=== PATIENT | male | born 1970 | race Two or more races ===

== ENCOUNTER 2024-03-16 07:24 | Observation (INO) | payer OTHER ==
[2024-03-16 11:35] LABS: INR 1.08 (0.83-1.09); PROTHROMBIN TIME (PATIENT) 11.8 SEC (9.7-13.0)
[2024-03-16 11:37] LABS: ACTIVATED PTT 34.1 SECONDS (25.2-36.5)
[2024-03-16 11:44] LABS: BASO % 0.4 % (0-2.0); EOS % 0.4 % (0-4.5); HEMOGLOBIN 13.2 GM/dL (11.7-16.9); LYMPH % 22.4 % (8-40); MCH 29.7 pg (25.7-33.7); MCHC 35.8 g/dl (32.0-35.9); MEAN PLT VOLUME 6.8 fl (7.5-11.1); MONO % 4.3 % (3.8-10.2); NEUT % 72.5 % (42.8-82.8); PLATELET COUNT 337 10^3/uL (134-434); RBC 4.46 M/mm3 (4.00-5.60); RDW 13.2 % (11.9-15.9); WHITE BLOOD COUNT 9.8 K/mm3 (4.0-10.0)
[2024-03-16 11:50] LABS: CHLORIDE 105 mmol/L (98-107); POTASSIUM 4.1 mmol/L (3.5-5.1); SODIUM 135 mmol/L (136-145)
[2024-03-16 11:53] LABS: ALBUMIN 3.8 g/dl (3.4-5.0); ANION GAP 5 mmol/L (4-13); BLOOD UREA NITROGEN 20.7 mg/dL (7-18); CO2 25 mmol/L (21-32); GLUCOSE,RANDOM 120 mg/dL (74-106)
[2024-03-16 11:56] LABS: CREATININE 0.9 mg/dL (0.55-1.3); SGOT/AST 11 U/L (15-37); SGPT/ALT 19 U/L (13-61)
[2024-03-16 11:57] LABS: BILIRUBIN,TOTAL 0.7 mg/dL (0.2-1); TOT PROT 7.7 g/dl (6.4-8.2)
[2024-03-16 11:58] LABS: ALK PHOS 122 U/L (45-117)
[2024-03-16 13:03] LABS: ERYTHROCYTE SEDIMENTATION RATE 37 mm/hr (0-20)
[2024-03-16 13:22] LABS: HIV INTERPRETATION NEGATIVE (NEGATIVE)
[2024-03-16 15:17] VITALS: BMI 33.0
[2024-03-16] MEDS: INSULIN ASPART SLIDING SCALE (NOVOLOG) 1 VIAL SQ SCH (17:19)
[2024-03-16] MEDS ORDERED: ALBUTEROL SO4 HFA INHALER IH PRN (21:51)
[2024-03-16] MEDS: ATORVASTATIN CA 20 MG TABLET (FP) PO SCH (22:00)
[2024-03-17] MEDS: BUPIVACAINE HCL/PF 0.5% (5MG/ML) 10 ML VIAL IJ ONE
[2024-03-17] MEDS ORDERED: PROPOFOL 20 ML ONE (08:06)
[2024-03-17] MEDS ORDERED: MIDAZOLAM HCL 2 MG/2 ML SINGLE DOSE VIAL ONE (08:07)
[2024-03-17] MEDS ORDERED: GENTAMICIN SO4 80 MG/2 ML VIAL ONE (08:33)
[2024-03-17] MEDS ORDERED: LIDOCAINE HCL 1%, 10 MG/ML (20ML VIAL) ONE (08:33)
[2024-03-17] MEDS ORDERED: BUPIVACAINE HCL/PF 0.5% (5MG/ML) 10 ML VIAL ONE (08:34)
[2024-03-17] MEDS ORDERED: ONDANSETRON 4 MG/2 ML VIAL ONE (08:56)
[2024-03-17] MEDS ORDERED: KETOROLAC TROMETHAMINE 30 MG/1 ML VIAL ONE (08:56)
[2024-03-17] MEDS: LIDOCAINE HCL 1%, 10 MG/ML (20ML VIAL) NR ONE ×2 (09:00)
[2024-03-17] MEDS ORDERED: ALBUTEROL SO4 HFA INHALER IH PRN (09:42)
[2024-03-17] MEDS ORDERED: MAGNESIUM OXIDE 400 MG TABLET (FP) PO SCH (10:00)
[2024-03-17] MEDS: MAGNESIUM OXIDE 400 MG TABLET (FP) PO SCH (10:41)
[2024-03-17] MEDS: LISINOPRIL 5 MG TABLET PO SCH (11:19)
[2024-03-17] MEDS: INSULIN ASPART SLIDING SCALE (NOVOLOG) 1 VIAL SQ SCH (11:19)
[2024-03-17] MEDS: AMOX TR/POT CLAV 500MG/125MG TABLETS (FP) PO SCH (12:36)
[2024-03-17 13:36] LABS: POTASSIUM 4.1 mmol/L (3.5-5.1)
[2024-03-17 13:39] LABS: ALBUMIN 3.4 g/dl (3.4-5.0); BLOOD UREA NITROGEN 24.9 mg/dL (7-18); MAGNESIUM 1.7 mg/dL (1.8-2.4)
[2024-03-17 13:42] LABS: BILIRUBIN,TOTAL 0.6 mg/dL (0.2-1); CREATININE 1.2 mg/dL (0.55-1.3); PHOSPHOROUS 3.2 mg/dL (2.5-4.9); TOT PROT 7.2 g/dl (6.4-8.2)
[2024-03-17 14:47] VITALS: BP 109/81; PULSE 82; RESP 17; TEMP 97.7
[2024-03-17] MEDS ORDERED: ATORVASTATIN CA 20 MG TABLET (FP) PO SCH (22:00)
[2024-03-18] MEDS ORDERED: LISINOPRIL 5 MG TABLET PO SCH ×2 (10:00)
== END 2024-03-17 14:23 | disposition home or self-care (01) ==
LOC: JER 07:24 → JERBED 11:29 → J6S 14:28
PROVIDERS: ADMIT Internal Medicine; ATTEND Internal Medicine
PROC: 3E013VG Introduction of Insulin into Subcutaneous Tissue, Percutaneous Approach (ICD-10-PCS; principal; 2024-03-16)
PROC: 0Q9 Lower Bones, Drainage (ICD-10-PCS; 2024-03-17)
DX: S91.102A Unspecified open wound of left great toe without damage to nail, initial encounter (principal); E11.40 Type 2 diabetes mellitus with diabetic neuropathy, unspecified; X58.XXXA Exposure to other specified factors, initial encounter; J45.909 Unspecified asthma, uncomplicated; I10 Essential (primary) hypertension; E78.00 Pure hypercholesterolemia, unspecified; Z87.891 Personal history of nicotine dependence
CPT/HCPCS: 36415; 80053; 82962; 83735; 84100; 85025; 85610; 85651; 85730; 86140; 86803; 86850; 86900; 86901; 87040; 87070; 87075; 87389; 93005; 93010; 96372; 99285-25; G0378